=== PATIENT | female | born 1965 | race Caucasian/White ===

== ENCOUNTER 2016-09-25 02:25 | Emergency (ER) | payer OTHER ==
[~2016-09-25 02:25] MED LIST: BENTYL20 MG PO; NORVASC10 MG PO; POLYETHYLENE GL17 GM PO; PROZAC40 MG PO
== END 2016-09-25 04:00 | disposition home or self-care (01) ==
LOC: ER 02:25
DX: K52.9 Noninfective gastroenteritis and colitis, unspecified (principal); E87.6 Hypokalemia; I10 Essential (primary) hypertension; E78.5 Hyperlipidemia, unspecified; G43.909 Migraine, unspecified, not intractable, without status migrainosus; F17.210 Nicotine dependence, cigarettes, uncomplicated; Z90.49 Acquired absence of other specified parts of digestive tract; Z79.899 Other long term (current) drug therapy; Z88.8 Allergy status to other drugs, medicaments and biological substances
CPT/HCPCS: 36415; 96361; 96374; 96375

== ENCOUNTER 2016-10-09 12:40 | Observation (INO) | payer OTHER ==
[~2016-10-09] VITALS: Ht 165.1 cm; Wt 87.1 kg
== END 2016-10-10 11:50 | disposition home or self-care (01) ==
LOC: ER 12:40 → MED 18:27
PROVIDERS: ADMIT Internal Medicine
DX: K52.9 Noninfective gastroenteritis and colitis, unspecified (principal); E87.6 Hypokalemia; I10 Essential (primary) hypertension; K21.9 Gastro-esophageal reflux disease without esophagitis; F41.9 Anxiety disorder, unspecified; F17.210 Nicotine dependence, cigarettes, uncomplicated; Z87.898 Personal history of other specified conditions; Z88.8 Allergy status to other drugs, medicaments and biological substances; Z79.899 Other long term (current) drug therapy; Z82.3 Family history of stroke; Z90.49 Acquired absence of other specified parts of digestive tract; Z90.710 Acquired absence of both cervix and uterus
CPT/HCPCS: 36415; 80307; 96361; 96365; 96366; 96367; 96372; 96375; 96376; G0378; J1650; J1885; J2550

== ENCOUNTER 2016-10-09 12:40 | Emergency (ER) | payer OTHER | END 2016-10-09 18:26 | disposition critical access hospital (66) | LOC: ER 12:40 | DX: A09 Infectious gastroenteritis and colitis, unspecified (principal); N39.0 Urinary tract infection, site not specified; G43.909 Migraine, unspecified, not intractable, without status migrainosus; I10 Essential (primary) hypertension; F17.210 Nicotine dependence, cigarettes, uncomplicated; Z90.49 Acquired absence of other specified parts of digestive tract; Z90.710 Acquired absence of both cervix and uterus; Z79.899 Other long term (current) drug therapy; Z88.8 Allergy status to other drugs, medicaments and biological substances | CPT/HCPCS: 96361; 96365; 96375; 96376 ==

== ENCOUNTER 2016-11-25 13:30 | Observation (INO) | payer OTHER ==
[~2016-11-25] VITALS: Ht 162.6 cm; Wt 90.7 kg
== END 2016-11-27 04:55 | disposition home or self-care (01) ==
LOC: ER 13:30 → MED 18:32
PROVIDERS: ADMIT Internal Medicine Cardiovascular Disease
DX: R10.9 Unspecified abdominal pain (principal); R11.0 Nausea; I10 Essential (primary) hypertension; F41.9 Anxiety disorder, unspecified; F32.9 Major depressive disorder, single episode, unspecified; E83.42 Hypomagnesemia; F17.210 Nicotine dependence, cigarettes, uncomplicated; Z87.19 Personal history of other diseases of the digestive system; Z79.899 Other long term (current) drug therapy; Z90.49 Acquired absence of other specified parts of digestive tract; Z90.710 Acquired absence of both cervix and uterus
CPT/HCPCS: 36415; 74020; 96361; 96365; 96366; 96367; 96374; 96375; 96376; G0378; J0780; J1200; J2060; J2550